=== PATIENT | female | born 1950 ===

== ENCOUNTER 2019-03-22 15:18 | Emergency (ER) | payer MEDICARE, SELFPAY ==
--- NOTE | ~2019-03-22 | XR_ITS ---
EXAMINATION: XR chest 2V DATE: 03/22/2019 15:59 INDICATION: Weakness and confusion TECHNIQUE: frontal and lateral views of the chest were obtained. COMPARISON: None FINDINGS: Air-fluid level within a large hiatal hernia. Opacities in the bilateral lower lung zones. No pleural effusion or pneumothorax. Heart size is normal. Left internal jugular central venous port catheter w ith distal tip near the superior cavoatrial junction. Moderate degenerative skeletal changes in the s pine and bilateral acromioclavicular joints. Thoracic kyphosis with mild anterior wedging of a few mi d to lower thoracic vertebral bodies. IMPRESSION: 1. Opacities in the bilateral lower lung zones which could represent atelectasis, mild pulmonary lupe a or pneumonia. 2. Large hiatal hernia. Reviewed, dictated and finalized at location A. [employer] TECHNICIAN IMPRESSION: 1. Opacities in the bilateral lower lung zones which could represent atelectasi s, mild pulmonary edema or pneumonia. 2. Large hiatal hernia.
--- NOTE | 2019-03-22 15:38 | ED.WEAKNESS ---
HPI - Weakness General Chief complaint: Weakness Stated complaint: confusion/weakness Time Seen by Provider: 03/22/19 15:23 Source: patient, family and RN notes reviewed Mode of arrival: EMS Limitations: clinical condition History of Present Illness HPI Narrative: A 68 y/o female presents to the ED via EMS for worsening generalized weakness beginning last . Per family reports that the pt has been more weak, confused, and lethargic beginning yesterday. They state that today they were trying to have the pt eat but that the pt kept dosing off while stilling at the table, so they called EMS to have the pt brought here. The pt reports that she has had a decreased appetite with N/V. Per family notes that the pt has breast CA which she is being treated for at [facility], and that her last chemo treatment on Saturday and her last radiation treatment on Saturday. They also note that the pt's Morphine dosage was increased from 30 mg BID to 45 mg BID last week and that she started taking Ramelteon yesterday. The pt denies any ABD pains, fevers, chills, dysuria, urinary retention, THOMAS, body aches, and any other medical complaints at this time. MD Complaint: generalized weakness Onset (ago): day(s) (last night) Duration: progressively worsening Location: generalized Context: new medication (Ramelteon) and other (chemo and radiation treatments) Associated symptoms: confusion, loss of appetite, nausea/vomiting and other (lethargy) Related Data Home Medications Medication Instructions Recorded Confirmed acetaminophen 1,000 mg PO TID PRN 03/22/19 03/22/19 amlodipine 5 mg PO DAILY 03/22/19 bupropion HCl 100 mg PO BID 03/22/19 cholecalciferol (vitamin D3) 1,000 unit PO DAILY 03/22/19 docusate sodium 100 mg PO BID 03/22/19 duloxetine 60 mg PO BID 03/22/19 furosemide 20 mg PO DAILY 03/22/19 hydroxyzine HCl 25 mg PO QID PRN 03/22/19 lidocaine [Aspercreme (lidocaine)] 1 patch TOPICAL DAILY PRN 03/22/19 morphine 45 mg PO BID 03/22/19 ondansetron 8 mg PO Q12H PRN 03/22/19 oxycodone 10 mg PO Q4H PRN 03/22/19 pediatric multivitamin no.42 1 tablet PO DAILY 03/22/19 [Children's Multivitamin] prochlorperazine maleate 10 mg PO Q8H PRN 03/22/19 ramelteon 8 mg PO HS 03/22/19 Allergies Allergy/AdvReac Type Severity Reaction Status Date / Time gabapentin Allergy Unknown Hallucinati Verified 03/22/19 18:49 ng shellfish derived Allergy Migraine Verified 03/22/19 18:49 Review of Systems Review of Systems: All systems reviewed & are unremarkable except as noted in HPI and below Constitutional: Constitutional: Denies body ache(s), Denies chills, Denies fever(s), Denies headache(s), Denies night sweats, Reports poor appetite, Reports weakness (generalized) and Reports other (lethergy) Eyes: Eyes: Denies change in vision, Denies loss of vision and Denies other visual disturbances ENT: Denies headache(s), Denies hoarseness, Denies epistaxis, Denies nasal congestion and Denies sore throat Cardiovascular: Cardiovascular: Denies chest pain, Denies leg edema, Denies palpitations and Denies dyspnea Respiratory: Respiratory: Denies cough, Denies dyspnea and Denies wheezing Gastrointestinal: Gastrointestinal: Denies abdominal pain, Denies diarrhea, Reports nausea and Reports vomiting Genitourinary: Genitourinary: Denies hematuria, Denies urinary frequency and Denies dysuria Musculoskeletal: Musculoskeletal: Denies abnormal gait, Denies deformity, Denies joint swelling, Denies muscle weakness and Denies numbness Integumentary/Breasts: Skin/Breast: Denies rash, Denies unusual bruising and Denies wounds Neurologic: Denies abnormal gait, Reports confusion, Denies headache(s), Denies focal weakness, Denies loss of vision and Denies numbness Psychiatric: Psychiatric: Reports no additional psychiatric complaints Endocrine: Endocrine: Denies fatigue and Denies palpitations Hematologic/Lymphatic: Hematologic/Lymphatic: Denies easy bleeding and Denies easy b
--- NOTE | 2019-03-22 15:45 | ECG_ITS ---
Measurements Intervals [place] Rate: 104 P: 19 MS: 184 QRS: -39 QRSD: 81 T: 29 QT: 289 QTc: 380 Interpretive Statements SINUS TACHYCARDIA LEFT AXIS DEVIATION LOW QRS VOLTAGE IN PRECORDIAL LEADS POOR R WAVE PROGRESSION, CONSIDER ANTERIOR INFARCT BORDERLINE ST-T WAVE ABNORMALITY- INF/LAT LEADS BASELINE ARTIFACT- I, II, AVR, AVL, V5-V6 ABNORMAL ECG Electronically Signed On 03-22-2019 16:37:52 PHOTOGRAMMETRIC TECH by Charly Green D.O.
[2019-03-22 15:50] VITALS: BP 128/76; PULSE 104; RESP 14; TEMP 36.6; O2SAT 96
[2019-03-22 16:06] LABS: Add Urine Microscopic? YES; Appearance Urine Clear (Clear); Bilirubin Urine 1+ (Negative); Blood Urine Negative (Negative); Color Urine Amber (Yellow); Glucose Urine UA Negative (Negative); Ketones Urine 1+ mg/dL (Negative); Leukocyte Esterase Ur Negative LEU/UL (Negative); Mucus Urine Few /lpf; Nitrate Urine Negative (Negative); Protein Urine 1+ mg/dL (Negative); RBC Urine 0-2 /hpf (0-2); Squamous Epithelial Cell Urine Rare /hpf (Few); WBC Urine 0-3 /hpf
[2019-03-22 16:07] LABS: Specific Grav Ur 1.033 (1.001-1.035)
[2019-03-22 16:23] LABS: Basophils Percent Auto 0.6 % (0.2-1.2); Eosinophils Absolute Auto 0.6 K/mm3 (0-0.3); Eosinophils Percent Auto 17.6 % (0-4.4); Hematocrit 42.5 % (37.0-47.0); Hemoglobin 13.4 g/dL (12.0-15.0); Immature Granulocyte Absolute 0.03 K/mm3 (0.00-0.031); Immature Granulocyte Percent A 0.9 % (0-0.5); Lymphocytes Absolute Auto 0.62 K/mm3 (0.9-3.2); Lymphocytes Percent Auto 18.5 % (18.3-44.2); Mean Corpuscular HGB Conc 31.5 g/dl (32-36); Mean Corpuscular Hemoglobin 29.8 pg (26-34); Mean Corpuscular Volume 94.7 fl (80-100); Mean Platelet Volume 10.1 fl (7.4-10.4); Monocytes Absolute Auto 0.6 K/mm3 (0.1-0.6); Monocytes Percent Auto 18.5 % (2.6-8.5); Neutrophils Absolute Auto 1.5 K/mm3 (1.3-6.7); Neutrophils Percent Auto 43.9 % (45.5-73.1); Platelet Count Result 129 k/mm3 (150-375); Red Blood Count 4.49 M/mm3 (4.2-5.4); Red Cell Distribution Width 16.5 % (11.5-14.5); White Blood Count 3.4 K/mm3 (4.5-10.0)
[2019-03-22 16:37] LABS: Alanine Aminotransferase 59 U/L (4-35); Albumin Level 3.2 g/dL (3.5-5.1); Alkaline Phosphatase 227 U/L (38-126); Aspartate Amino Transferase 57 U/L (14-36); Bilirubin,Total 0.9 mg/dL (0.2-1.3); Blood Urea Nitrogen 18 mg/dL (7-17); Calcium 8.8 mg/dL (8.4-10.2); Carbon Dioxide 24 mmol/L (22-30); Chloride 103 mmol/L (98-107); Estimated CRCL calculation 83 ml/min; Estimated Glomerular Filt Rate > 60; Glucose 95 mg/dL (65-105); Potassium 3.2 mmol/L (3.4-5.0); Sodium 140 mmol/L (137-145)
[2019-03-22] MEDS: NALOXONE HCL 0.4 MG/ML VIAL 0.1 MG IV PUSH ×6 (16:38→19:54)
[2019-03-22] MEDS: LACTATED RINGERS 1,000 ML 999 ML IV CONT (16:38)
[2019-03-22 17:00] VITALS: BP 115/70; PULSE 99; RESP 19; O2SAT 98
[2019-03-22] MEDS: POTASSIUM CHLORIDE 20 MEQ PACKET (FOR LIQUID) 40 MEQ PO (17:41)
[2019-03-22 18:00] VITALS: BP 116/85; PULSE 99; RESP 17; O2SAT 97
[2019-03-22 20:03] VITALS: BP 115/79; PULSE 99; RESP 15; TEMP 36.6; O2SAT 95
== END 2019-03-22 20:07 | disposition home or self-care (01) ==
PROVIDERS: Emergency Provider Emergency Medicine
DX: R53.1 Weakness (principal); T40.2X5A Adverse effect of other opioids, initial encounter; T42.6X5A Adverse effect of other antiepileptic and sedative-hypnotic drugs, initial encounter; K44.9 Diaphragmatic hernia without obstruction or gangrene; R91.8 Other nonspecific abnormal finding of lung field; R00.0 Tachycardia, unspecified; R94.31 Abnormal electrocardiogram [ECG] [EKG]; C50.919 Malignant neoplasm of unspecified site of unspecified female breast; Z79.899 Other long term (current) drug therapy
CPT/HCPCS: 36415; 51701; 71046; 80053; 81001; 85025; 93005; 96361; 96374; 99284; A9270; J2310; J7120